=== PATIENT | female | born 1975 | race Caucasian/White ===

== ENCOUNTER 2020-05-30 08:38 | Emergency (ER) | payer BC ==
[2020-05-30] MEDS ORDERED: Acetaminophen 500 MG Tab ONE (09:27)
[2020-05-30] MEDS ORDERED: Acetaminophen 500 MG Tab PO ONE (10:18)
[2020-05-30 10:31] LABS: BLOOD UREA NITROGEN,BUN 15 mg/dL (7.0-18.0); CARBON DIOXIDE,CO2 27.3 mmol/L (21.0-32.0); CHLORIDE,CL 105 mmol/L (98-107); GLUCOSE RANDOM 91 mg/dL (74-106); POTASSIUM,K 3.6 mmol/L (3.5-5.1); SODIUM,NA 140 mmol/L (136-145)
--- NOTE | 2020-05-30 10:46 | EDM.PDOC ---
ED HPI GENERAL MEDICAL PROBLEM - General Chief Complaint: Neuro Symptoms/Deficits Stated Complaint: POSSIBLE SEIZURE Time Seen by Provider: 05/30/20 08:41 Source of Information: Reports: Patient, Family History Limitations: Reports: No Limitations - History of Present Illness INITIAL COMMENTS - FREE TEXT/NARRATIVE: 44-year-old female with a past medical history of hypothyroidism, status post thyroidectomy, Crohn's disease on sulfasalazine presenting with a possible seizure. Presents from home. Patient was trying to get out of bed when her significant other noted that she developed foaming at the mouth, whole body shaking for approximately 60 seconds, with her eyes rolled back in her head. He was concerned that she may have had a seizure. 911 was called. When paramedics arrived, this episode had resolved but the patient was confused and did not remember what it happened. No prior history of a seizure disorder. No history of recent illness, head trauma, fever, neck stiffness, visual disturbance. Patient does report frequent whole head type headaches for the past 1 week, which is unusual for her. Denies any other complaints at this point. ROS: A 10-point review of systems was negative, except as noted in the HPI (or in the ROS section of this note). Past medical history: Reviewed, no additional pertinent history. Surgical history: Reviewed in system, no additional pertinent history. Social history: Reviewed in system, no additional pertinent history. Family history: Reviewed in system, no additional pertinent history. PHYSICAL EXAM Vital signs reviewed. Nursing notes reviewed. Constitutional: Awake, alert, non-distressed. Head: Normocephalic, atraumatic. Eyes: EOMI, conjunctiva normal, no discharge, no scleral icterus. Pupils 3 mm bilaterally Neck: Supple, full range of motion Ears, Nose, Throat: External ears and nose normal, moist oral mucosa. No lingual trauma. Cardiovascular: 2+ radial pulse, capillary refill less than 2 seconds. RRR no MRG Pulmonary: normal work of breathing, no accessory muscle use. CTA BL Abdomen/GI: Soft, nontender, nondistended, no guarding or rigidity, no masses. Musculoskeletal: No deformities. Integumentary: Appropriate color for ethnicity, warm, dry, no pallor or jaundice, no rash. Neurologic: Awake, alert, and oriented x3. Cranial nerves II through XII intact. No facial droop or dysarthria. No temporal artery tenderness. Supple neck with normal range of motion. No pronator drift. Normal zoshgi-itme-rirwyb and vpam-hy-twft. No dysdiadochokinesia. 5/5 strength in all extremities. Sensation intact to light touch x4. Normal gait. Able to sit, stand, and ambulate without assistance. Psychiatric: Appropriate mood and affect, normal thought process. - Related Data Allergies Allergy/AdvReac Type Severity Reaction Status Date / Time Sulfa (Sulfonamide Allergy Cannot Verified 05/30/20 08:57 Antibiotics) Remember Home Meds: Home Meds Levothyroxine [Synthroid] 50 mcg PO DAILY 09/09/14 [History] sulfaSALAzine [sulfaSALAzine DR] 500 mg PO BID 09/09/14 [History] Past Medical History HEENT History: Reports: None Cardiovascular History: Reports: None Respiratory History: Reports: None Gastrointestinal History: Reports: None Genitourinary History: Reports: None MEDICAL ASSEMBLER History: Reports: None Musculoskeletal History: Reports: None Neurological History: Reports: None Psychiatric History: Reports: None Endocrine/Metabolic History: Reports: None Hematologic History: Reports: None Immunologic History: Reports: None Oncologic (Cancer) History: Reports: None Dermatologic History: Reports: None - Infectious Disease History Infectious Disease History: Reports: Chicken Pox - Past Surgical History Head Surgeries/Procedures: Reports: None HEENT Surgical History: Reports: None Cardiovascular Surgical History: Reports: None Respiratory Surgical History: Reports: None GI Surgical History: Reports: None Female Surgical History: Reports: Hysterectomy, Tubal Ligation Endocrine Surgical History: Reports: Thyroidectomy Neurological Surgical History: Reports: None Musculoskeletal Surgical History: Reports: None Oncologic Surgical History: Reports: None Dermatological Surgical History: Reports: None Social & Family History - Family History Family Medical History: Noncontributory - Tobacco Use Smoking Status *Q: Never Smoker Second Hand Smoke Exposure: No - Caffeine Use Caffeine Use: Reports: Soda - Recreational Drug Use Recreational Drug Use: No ED ROS GENERAL - Review of Systems Review Of Systems: See Below Constitutional: Denies: Fever, Chills Cardiovascular: Denies: Chest Pain GI/Abdominal: Denies: Nausea, Vomiting Musculoskeletal: Denies: Neck Pain Neurological: Reports: Headache, Seizure. Denies: Confusion, Numbness, Paresthesia, Pre-Existing Deficit, Tingling, Tremors, Trouble Speaking, Difficulty Walking, Weakness, Change in Speech, Gait Disturbance - Physical Exam Exam: See Below EKG INTERPRETATION EKG Interpretation Comments: 12-Lead ECG Interpretation Acquired: 9:18 AM Rhythm: Sinus rhythm Rate: 75 bpm [place]: Normal Intervals: Normal Ectopy: None Ischemic Changes: None apparent RV Strain: No obvious RV strain pattern. ST Segments/T-Waves: No notable changes Interpretation: Unremarkable Course - Vital Signs Text/Narrative:: 44-year-old female with first-time seizure. Patient hemodynamically stable, afebrile, well-appearing, looks nontoxic. Differential diagnosis includes but is not limited to: CVA, hepatic or hypertensive encephalopathy, hypo-/hyperglycemia, hypo-/hyperthermia, opiate overdose, alcohol intoxication, electrolyte abnormality, uremia, traumatic injury, toxic substances, intracerebral tumor, thyrotoxicosis, infection, psychiatric condition, seizure, and many others. Neurologically intact on arrival, no deficits. Complains of a mild headache. Head CT is negative. EKG shows no ischemia, no arrhythmia, normal intervals. No electrolyte disturbances. Lactate is normal. No evidence of head trauma. No evidence of a toxidrome. Mental status is normal. Given negative work-up, stable discharge home with outpatient neurology clinic referral for work-up of first-time seizure. Will defer antiseizure medications at this point and defer to neurologist. Given strict warnings about not driving, operating heavy machinery, swimming alone, or climbing up to tall heights. Plan: Patient is stable to discharge home with outpatient primary care follow- up. Strict emergency department return precautions were provided, patient indicated understanding. All questions were answered prior to departure. Di scharged in good condition. Last Recorded V/S: Last Vital Signs Temp 35.9 C L 05/30/20 08:54 Pulse 89 05/30/20 08:54 Resp 17 05/30/20 08:54 BP 136/82 05/30/20 08:54 Pulse Ox 97 05/30/20 08:54 - Orders/Labs/Meds Orders: Active Orders 24 hr Category Date Time Status EKG Documentation Completion [RC] STAT Care 05/30/20 10:17 Active Head wo Cont [CT] Stat Exams 05/30/20 10:15 Taken Labs: Laboratory Tests 05/30/20 05/30/20 05/30/20 Range/Units 09:30 09:30 09:30 WBC 10.33 (4.0-11.0) K/uL RBC 4.41 (4.30-5.90) M/uL Hgb 14.1 (12.0-16.0) g/dL Hct 42.5 (36.0-46.0) % MCV 96.4 (80.0-98.0) fL MCH 32.0 (27.0-32.0) pg MCHC 33.2 (31.0-37.0) g/dL RDW Std Deviation 44.0 (28.0-62.0) fl RDW Coeff of Kanika 13 (11.0-15.0) % Plt Count 257 (150-400) K/uL MPV 10.30 (7.40-12.00) fL Neut % (Auto) 84.3 H (48.0-80.0) % Lymph % (Auto) 9.1 L (16.0-40.0) % [place] % (Auto) 6.0 (0.0-15.0) % Eos % (Auto) 0.4 (0.0-7.0) % Baso % (Auto) 0.2 (0.0-1.5) % Neut # (Auto) 8.7 H (1.4-5.7) K/uL Lymph # (Auto) 0.9 (0.6-2.4) K/uL [place] # (Auto) 0.6 (0.0-0.8) K/uL Eos # (Auto) 0.0 (0.0-0.7) K/uL Baso # (Auto) 0.0 (0.0-0.1) K/uL Nucleated RBC % 0.0 /100WBC Nucleated RBCs # 0 K/uL Lactate 1.0 (0.20-2.00) mmol/L Sodium 140 (136-145) mmol/L Potassium 3.6 (3.5-5.1) mmol/L Chloride 105 (98-107) mmol/L Carbon Dioxide 27.3 (21.0-32.0) mmol/L BUN 15 (7.0-18.0) mg/dL Creatinine 0.8 (0.6-1.0) mg/dL Est Cr Clr Drug Dosing 80.75 mL/min Estimated GFR (MDRD) > 60.0 ml/min Glucose 91 (74-106) mg/dL Calcium 7.8 L (8.5-10.1) mg/dL Total Bilirubin 0.8 (0.2-1.0) mg/dL AST 23 (15-37) IU/L ALT 32 (14-63) IU/L Alkaline Phosphatase 39 L (46-116) U/L Total Protein 7.2 (6.4-8.2) g/dL Albumin 3.7 (3.4-5.0) g/dL Globulin 3.5 (2.6-4.0) g/dL Albumin/Globulin Ratio 1.1 (0.9-1.6) Meds: Medications Discontinued Medications Generic Name Dose Route Start Last Admin Trade Name Cassandra PRN Reason Stop Dose Admin Acetaminophen Confirm 05/30/20 09:27 05/30/20 10:28 Tylenol Extra Strength Administered 05/30/20 09:28 Not Given Dose 1,000 mg .ROUTE .STK-MED ONE Acetaminophen 1,000 mg 05/30/20 10:18 05/30/20 10:28 Tylenol Extra Strength PO 05/30/20 10:19 1,000 mg ONETIME ONE Administration Departure - Departure Time of Disposition: 10:46 Disposition: Home, Self-Care 01 Condition: Good Clinical Impression: First time seizure - Discharge Information *PRESCRIPTION DRUG MONITORING PROGRAM REVIEWED*: Not Applicable *COPY OF PRESCRIPTION DRUG MONITORING REPORT IN PATIENT DEVANTE: Not Applicable Instructions: Seizure, Adult Referrals: Laura Muñiz MD [Physician] - 1 Week (For work-up of first-time seizure.) Forms: ED Department Discharge Additional Instructions: Thank you for choosing the [facility] emergency department in [place] for your medical needs today. It was a pleasure caring for you. You were seen in the emergency department for concern about a first-time seizure. Your work-up is reassuring at this point. We are going to refer you to a neurologist, make an appointment to see them in 1 to 2 weeks. You can take [id number] Tylenol or Motrin for your headache. You should not drive, operate heavy machinery, swim alone, or climb up to tall heights until you are seen and cleared by a neurologist. If you were to have another seizure, this could cause you to be seriously injured or killed or harm or kill other people. Please return the emergency department immediately if your symptoms worsen or if you feel worse. The following information is given to patients seen in the emergency department who are being discharged. This information is to outline your options for follow-up care. We provide all patients seen in our emergency department with a follow-up referral. The need for follow-up, as well as the timing and circumstances, are variable depending upon the specifics of your emergency department visit. If you don't have a primary care physician on staff, we will provide you with a referral. We always advise you to contact your personal physician following an emergency department visit to inform them of the circumstance of the visit and for follow-up with them and/or the need for any referrals to a consulting specialist. The emergency department will also refer you to a specialist when appropriate. This referral assures that you have the opportunity for follow-up care with a specialist. All of these measure are taken in an effort to provide you with optimal care, which includes your follow-up. Under all circumstances we always encourage you to contact your private physician who remains a resource for coordinating your care. When calling for follow-up care, please make the office aware that this follow-up is from your recent emergency room visit. If for any reason you are refused follow-up, please contact the [facility] Emergency Department at and asked to speak to the emergency department charge nurse. If you do not have a primary care physician that is caring for you, you can contact these clinics below to set up an appointment to establish care: [facility] - Primary Care [address] [place] [id number] [facility] [address] [place] [address] Sepsis Event Note (ED) - Evaluation Sepsis Screening Result: No Definite Risk - Focused Exam Vital Signs: Vital Signs Temp Pulse Resp BP Pulse Ox 05/30/20 08:54 35.9 C L 89 17 136/82 97 - My Orders Last 24 Hours: My Active Orders 05/30/20 10:15 Head wo Cont [CT] Stat 05/30/20 10:17 EKG Documentation Completion [RC] STAT - Assessment/Plan Last 24 Hours: My Active Orders 05/30/20 10:15 Head wo Cont [CT] Stat 05/30/20 10:17 EKG Documentation Completion [RC] STAT
--- NOTE | 2020-06-01 14:21 | CT ---
EXAM DATE: 05/30/20 PATIENT'S AGE: 44 Patient: [place] KWONG Facility: [facility], [facility] : 1975 Study: CT-Head -05/30/2020 9:52:58 AM Ordering Physician: Jayden Tapia Final Report: INDICATION: Persistent headache. TECHNIQUE: CT head without contrast. COMPARISON: None. FINDINGS: CSF spaces: Within normal limits for age. Brain parenchyma and extra-axial spaces: The cummings-white differentiation is normal. No sign of mass, hemorrhage, or midline shift. No extra-axial fluid collection. Skull base and calvarium: The visualized paranasal sinuses and mastoid air cells demonstrate no acute or significant findings. The visualized orbits are grossly unremarkable. No skull fractures. IMPRESSION: Unremarkable noncontrast head CT. Please note that all CT scans at this facility use dose modulation, iterative reconstruction, and/or weight-based dosing when appropriate to reduce radiation dose to as low as reasonably achievable. Dictated by Toney Rodriguez MD @ May 30 2020 9:58AM Signed by: Toney Rodriguez MD @05/30/2020 10:01:55 AM (Electronic Signature) Report Signed by Proxy. [facility]
== END 2020-05-30 10:54 | disposition home or self-care (01) ==
LOC: MW.ED 08:38
DX: R56.9 Unspecified convulsions (principal); E03.9 Hypothyroidism, unspecified; Z88.2 Allergy status to sulfonamides; Z79.899 Other long term (current) drug therapy
CPT/HCPCS: 36415; 70450; 80053; 83605; 85025; 93005; 99285; A9270; 99282